=== PATIENT | female | born 1965 | race Caucasian/White ===

== ENCOUNTER 2018-03-15 06:00 | Day surgery (SDC) | payer OTHER, BC ==
[~2018-03-15] VITALS: Ht 167.6 cm; Wt 54.9 kg
--- NOTE | 2018-03-15 08:10 | NUR ---
03/15/18 0810 Marcia Ritter 0801 PT ARRIVED TO PACU ON RA, RESP EVEN AND UNLABORED. PT NONREACTIVE TO PAINFUL STIMULI.
[2018-03-15] MEDS ORDERED: NORCO 5-325 TA1 EACH PO (08:32)
[2018-03-15] MEDS ORDERED: MOTRIN IB200 MG PO (08:33)
--- NOTE | 2018-03-18 07:30 | NUR ---
PT IS ALERT, ORIENTED AND SUPPORTED BY HER LEVI. BOTH SEEM VERY PLEASENT, PREPARED AND HAVE RECENTLY MOVED TO [place]. PT REQUESTED PRAYER, WILL FOLLOW NEEDED
--- NOTE | 2018-03-20 13:07 | OR ---
[facility] [address], [place] [address] Signed DATE OF OPERATION: 03/15/2018 SURGEON: Tarsha Pineda MD PREOPERATIVE DIAGNOSES: Menometrorrhagia, irregular menses, uterine fibroids. POSTOPERATIVE DIAGNOSES: Menometrorrhagia, irregular menses, uterine fibroids. PROCEDURES PERFORMED: Hysteroscopy, D and C, resection of endometrial lesions. ANESTHESIA: MAC. ESTIMATED BLOOD LOSS: 10 mL. DRAINS: None. INDICATIONS AND FINDINGS: The patient is a 52-year-old female, 2, para 2, who has been having abnormal bleeding over this past year. She has missed several periods, but then also had a prolonged bleeding episode lasting almost 2 months. She has known fibroids. EMB had previously been done and was nondiagnostic. At the time of surgery, uterus was enlarged approximately 10-week size with multiple fibroids. The cavity sounded to 8 cm. The cavity was fairly irregular with thickened irregular endometrium, though there was no large mass within the cavity. DESCRIPTION OF PROCEDURE: The patient was prepped and draped in the dorsal lithotomy position. A weighted speculum was placed and the anterior lip of the cervix was visualized and grasped with a single-tooth tenaculum. The cavity was sounded to 8 cm. The endocervical canal was then dilated to a #8 dilator. The MyoSure device was placed and the cavity inspected. The multiple irregular areas were noted. The MyoSure device was removed and D and C was done with a small sharp curette with a moderate amount of tissue obtained. The MyoSure device was replaced and there was still some irregularities of the cavity and the MyoSure Lite was used to resect these areas. At the conclusion, both tubal orifices Electronically Signed By: TARSHA PINEDA MD 03/20/18 1307 PATIENT NAME: MICHAEL BARAHONA OPERATIVE REPORT DATE OF : 65 REPORT #: [id number] PHYSICIAN: TARSHA PINEDA MD PCP: NO PRIMARY CARE PHYSICIAN REPORT IS CONFIDENTIAL AND NOT TO BE RELEASED WITHOUT AUTHORIZATION [facility] [address], [place] [address] Signed could be identified and the cavity appeared much more smooth and regular. The procedure was then terminated. The tenaculum was removed and there was initially some bleeding from the right hand tenaculum site, but this responded to pressure from the ring forceps. The instruments were then removed and the patient was taken to the recovery room in good condition. Tarsha Pineda MD PJW/MODL /[id number] Copies: ~ Electronically Signed By: TARSHA PINEDA MD 03/20/18 1307 PATIENT NAME: MICHAEL BARAHONA OPERATIVE REPORT DATE OF : 65 REPORT #: [id number] PHYSICIAN: TARSHA PINEDA MD PCP: NO PRIMARY CARE PHYSICIAN REPORT IS CONFIDENTIAL AND NOT TO BE RELEASED WITHOUT AUTHORIZATION
== END 2018-03-15 08:55 | disposition home or self-care (01) ==
LOC: DS 06:00
PROVIDERS: Obstetrics & Gynecology
PROC: 0UDB8ZX Extraction of Endometrium, Via Natural or Artificial Opening Endoscopic, Diagnostic (ICD-10-PCS; principal; 2018-03-15 06:45)
DX: D25.9 Leiomyoma of uterus, unspecified (principal); N83.291 Other ovarian cyst, right side; Z79.52 Long term (current) use of systemic steroids; Z79.899 Other long term (current) drug therapy
CPT/HCPCS: 00952; J1885; J2250; J2405; J2704; J2765; J3010; J7120

== ENCOUNTER 2022-06-03 09:29 | Emergency (ER) | payer OTHER, BC ==
[~2022-06-03] VITALS: Ht 167.6 cm; Wt 57.6 kg
[~2022-06-03 09:29] MED LIST: MOTRIN IB200 MG PO; NORCO 5-325 TA1 EACH PO
[2022-06-03] MEDS ORDERED: [UNRECOGNIZED DRUG - OTHER] OPTH (10:21)
[2022-06-03] MEDS ORDERED: PREDNISOLONE ACE5 M1 OP (10:21)
== END 2022-06-03 10:30 | disposition home or self-care (01) ==
LOC: ED 09:29
DX: H20.00 Unspecified acute and subacute iridocyclitis (principal)
CPT/HCPCS: 99283